=== PATIENT | female | born 1965 | race Hispanic/Latino ===

== ENCOUNTER 2022-07-10 23:16 | Inpatient (IN) | payer BC ==
--- OUTSIDE RECORDS SUMMARY | 2022-07-10 23:19 | XMS REPORT | Continuity of Care Document ---
:1965 Author Organization [facility] t Address [address] [place] [address] Care Team Providers Name Role Phone MILENA HENNESSY Attending Clinician Unavailable ENOCH SMITH Attending Clinician Unavailable ENOCH SMITH Admitting Clinician Unavailable Problems This patient has no known problems. Allergies, Adverse Reactions, Alerts This patient has no known allergies or adverse reactions. Medications This patient has no known medications. Procedures This patient has no known procedures. Encounters Start End Encounter Admission Attending Care Care Encounter Source Date/Time Date/Time Type Type Clinicians Facility Department ID 2021-04-28 2021-04-28 Outpatient MILENA HENNESSY [facility] [id number] [place] 00:00:00 00:00:[address] 2018-09-20 2018-09-20 Outpatient MERRICK FENG RAD [id number] 1859 [facility] [place] 12:57:00 23:59:00 E[facility] Results Test Description Test Time Test Comments Results Result Comments Source XR SPINE LUMBAR 2018-09-20 Lumbar spine, 5 COMPLETE *OW* 13:45:13 viewsLocation Code: [id number] HISTORY: Back painCOMPARISON: None.COMMENTS: AP, oblique, and lateral views of the lumbar spine demonstrate noacute fracture or malalignment. The soft tissues are unremarkable.IMPRESS ION: No acute radiographic abnormality.
[2022-07-11 00:46] LABS: Absolute Lymphocytes (CBC) 1.8 K/uL (0.7-4.9); Hematocrit 33.7 % (36.0-45.0); Lymphocytes % 33.2 % (15.3-44.8); MCV 84.9 fL (80-100); MPV 6.1 fL (7.6-11.3); RBC Red Blood Cell Count 3.97 M/uL (3.86-4.86)
[2022-07-11 01:06] LABS: ALT/SGPT 79 U/L (12-78); AST/SGOT 44 U/L (15-37); Albumin 3.7 g/dL (3.4-5.0); Alkaline Phosphatase 104 U/L (45-117); Bicarbonate 23 mmol/L (21-32); Bilirubin Direct 0.2 mg/dL (0-0.2); Glomerular Filtration Rate 111 ml/min (=/>90); Glucose Level 116 mg/dL (74-106); Lipase 158 U/L (73-393); Magnesium 1.6 mg/dL (1.8-2.4); Potassium 4.1 mmol/L (3.5-5.1); Protein, Total 7.1 g/dL (6.4-8.2)
[2022-07-11 01:07] LABS: BUN Blood Urea Nitrogen < 3 mg/dL (7-18); Sodium Level 116 mmol/L (136-145)
[2022-07-11 01:56] LABS: Urine Blood Negative (Negative); Urine Glucose Negative (Negative); Urine Protein Negative (Negative); Urine Specific Gravity 1.015 (1.005-1.030); Urine pH 7.5 (5.0-7.0)
[2022-07-11] MEDS ORDERED: NA CHLORIDE 0.9% 1,000 ML ONE (01:58)
[2022-07-11] MEDS ORDERED: MAGNESIUM SULFATE 1 gm IVPB 1 GM/100 ML BAG IV ONE (01:58)
[2022-07-11] MEDS ORDERED: NA CHLORIDE 0.9% 500 ML ONE (01:58)
[2022-07-11] MEDS ORDERED: ONDANSETRON 4 MG/2 ML VIAL ONE ×2 (02:00→08:38)
--- NOTE | 2022-07-11 02:01 | EDPHYS ---
Physician Documentation [facility] Name: Estela Petersen Age: 57 yrs Sex: Female : 1965 Arrival Date: 07/10/2022 Time: 23:18 Bed 24 Private MD: ED Physician Austin Hogan HPI: 07/11 00:07 This 57 yrs old Female presents to ER via Unassigned with complaints of snw Dizziness, Vomiting, Neck Pain, >24Hrs Old, Numbness Of Arm. 00:07 The patient presents with generalized weakness, lightheadedness. Onset: The snw symptoms/episode began/occurred suddenly, at 17:00, and became persistent. Context: occurred at home. Associated signs and symptoms: Pertinent positives: abdominal pain, long standing. Severity of symptoms: At their worst the symptoms were moderate. The patient has experienced similar episodes in the past. The patient has been recently seen at an urgent care, this week, for similar complaints, was given a prescription for antibiotics. pt had covid in April. Went to [place] in May. Has appt with Dr. Fernandez for an EGD tomorrow at 0800. Historical: - Allergies: 01:57 PENICILLINS; vc1 - PMHx: 01:57 Diabetes mellitus; Hypertensive disorder; High Cholesterol; GERD; vc1 - PSHx: 01:57 Hernia repair; vc1 - Immunization history:: Adult Immunizations. - Social history:: Smoking status: Patient denies any tobacco usage or history of. ROS: 00:05 Eyes: Negative for injury, pain, redness, and discharge, ENT: Negative for injury, snw pain, and discharge, Neck: Negative for injury, pain, and swelling, Cardiovascular: Negative for chest pain, palpitations, and edema, Respiratory: Negative for shortness of breath, cough, wheezing, and pleuritic chest pain. 00:05 Back: Negative for injury and pain, : Negative for injury, bleeding, discharge, and swelling, MS/Extremity: Negative for injury and deformity. 00:05 Constitutional: Positive for body aches, malaise, poor PO intake. 00:05 Abdomen/GI: Positive for abdominal pain, nausea, of the generalized. 00:05 Skin: Positive for of the left arm. 00:05 Neuro: Positive for dizziness, headache, pt being tx for UTI, changed abx today and post ingestion pt states she feels worse. . Exam: 00:04 Constitutional: This is a well developed, well nourished patient who is awake, alert, snw and in no acute distress. Head/Face: Normocephalic, atraumatic. Eyes: Pupils equal round and reactive to light, extra-ocular motions intact. Lids and lashes normal. Conjunctiva and sclera are non-icteric and not injected. Cornea within normal limits. Periorbital areas with no swelling, redness, or edema. ENT: Nares patent. No nasal discharge, no septal abnormalities noted. Tympanic membranes are normal and external auditory canals are clear. Oropharynx with no redness, swelling, or masses, exudates, or evidence of obstruction, uvula midline. Mucous membranes moist. Neck: Trachea midline, no thyromegaly or masses palpated, and no cervical lymphadenopathy. Supple, full range of motion without nuchal rigidity, or vertebral point tenderness. No Meningismus. Chest/axilla: Normal chest wall appearance and motion. Nontender with no deformity. No lesions are appreciated. Cardiovascular: Regular rate and rhythm with a normal S1 and S2. No gallops, murmurs, or rubs. Normal PMI, no JVD. No pulse deficits. Respiratory: Lungs have equal breath sounds bilaterally, clear to auscultation and percussion. No rales, rhonchi or wheezes noted. No increased work of breathing, no retractions or nasal flaring. Abdomen/GI: Soft, non-tender, with normal bowel sounds. No distension or tympany. No guarding or rebound. No evidence of tenderness throughout. Back: No spinal tenderness. No costovertebral tenderness. Full range of motion. Skin: Warm, dry with normal turgor. Normal color with no rashes, no lesions, and no evidence of cellulitis. MS/ Extremity: Pulses equal, no cyanosis. Neurovascular intact. Full, normal range of motion. Neuro: Awake and alert, GCS 15, oriented to person, place, time, and situation. Cranial nerves II-XII grossly intact. Motor strength 5/5 in all extremities. Sensory grossly intact. Cerebellar exam normal. Normal gait. Psych: Awake, alert, with orientation to person, place and time. Behavior, mood, and affect are within normal limits. Vital Signs: 07/10 23:40 BP 125 / 72; Pulse 90; Resp 20; Temp 97.6; Pulse Ox 100% ; Weight 68.04 kg; Height 5 vc1 ft. 0 in. (152.40 cm); Pain 8/10; 07/11 00:30 BP 126 / 72; Pulse 92; Resp 22; Pulse Ox 100% ; vc1 01:00 BP 120 / 65; Pulse 90; Resp 20; Pulse Ox 99% ; vc1 02:00 BP 136 / 67; Pulse 94; Resp 18; Pulse Ox 100% ; vc1 03:00 BP 115 / 64; Pulse 96; Resp 19; Pulse Ox 100% ; vc1 04:18 BP 117 / 63; Pulse 96; Resp 16; Pulse Ox 100% ; vc1 07/10 23:40 Body Mass Index 29.29 (68.04 kg, 152.40 cm) vc1 MDM: 00:02 Patient medically screened. snw 01:57 Data reviewed: vital signs, nurses notes. Data interpreted: Pulse oximetry: on is 100 snw %. Interpretation: normal. Counseling: I had a detailed discussion with the patient and/or guardian regarding: the historical points, exam findings, and any diagnostic results supporting the discharge/admit diagnosis, lab results, radiology results, the need for outpatient follow up, for definitive care. Response to treatment: There is no appreciated change of the patient's symptoms at this time. 01:59 Physician consultation: Sukhdeep ARROYO was called at 01:59, was contacted at 01:59, snw regarding admission, would like admission per Dr. Aki Juárez MD. 07/11 00:04 Order name: Basic Metabolic Panel; Complete Time: 01:09 snw 07/11 00:04 Order name: CBC with Diff; Complete Time: 01:06 snw 07/11 00:04 Order name: Hepatic Function; Complete Time: 01: snw 07/11 00:04 Order name: Lipase; Complete Time: 01: snw 07/11 00:04 Order name: Magnesium; Complete Time: 01: snw 07/11 00:04 Order name: Protime (+inr); Complete Time: 02:46 snw 07/11 00:04 Order name: Ptt, Activated; Complete Time: 02:46 snw 07/11 00:05 Order name: Glucose, Ancillary Testing; Complete Time: 00:10 EDMS 07/11 00:11 Order name: Glucose, Ancillary Testing EDMS 07/11 01:18 Order name: Urine Osmolality; Complete Time: 02:46 la1 07/11 01:18 Order name: Urine Creatinine; Complete Time: 02:19 la1 07/11 01:18 Order name: Urine Sodium Random; Complete Time: 02:19 la1 07/11 01:18 Order name: Osmolality, Serum; Complete Time: 02:46 la1 07/11 01:18 Order name: Uric Acid; Complete Time: 02:14 la1 07/11 00:04 Order name: CT Head Brain wo Cont snw 07/11 01:18 Order name: Cortisol la1 07/11 01:56 Order name: Urine Dipstick-Ancillary; Complete Time: 01:57 EDMS 07/11 01:57 Order name: Urine Culture snw 07/11 01:57 Order name: Urine Microscopic Only; Complete Time: 02:19 snw 07/11 02:30 Order name: SARS RAPID; Complete Time: 05:04 mw2 07/11 06:19 Order name: Basic Metabolic Panel EDMS 07/11 06:19 Order name: Phosphorus EDMS 07/11 06:19 Order name: T4 Free EDMS 07/11 06:19 Order name: Magnesium EDMS 07/11 06:19 Order name: Thyroid Stimulating Hormone EDMS 07/11 07:36 Order name: Glucose, Ancillary Testing EDMS 07/11 09:45 Order name: Basic Metabolic Panel EDMS 07/11 11:34 Order name: Glucose, Ancillary Testing EDMS 07/11 16:36 Order name: Basic Metabolic Panel EDMS 07/11 16:48 Order name: Glucose, Ancillary Testing EDMS 07/11 00:04 Order name: EKG; Complete Time: 00:08 snw 07/11 00:04 Order name: Accucheck; Complete Time: 00:44 snw 07/11 00:04 Order name: Cardiac monitoring; Complete Time: 00:36 snw 07/11 00:04 Order name: EKG - Nurse/Tech; Complete Time: 01:28 snw 07/11 00:04 Order name: IV Saline Lock; Complete Time: 00:44 snw 07/11 00:04 Order name: Labs collected and sent; Complete Time: 00:44 snw 07/11 00:04 Order name: NPO; Complete Time: 00:44 snw 07/11 00:04 Order name: O2 Per Protocol; Complete Time: 00:44 snw 07/11 00:04 Order name: O2 Sat Monitoring; Complete Time: 00:44 snw 07/11 00:04 Order name: Stroke Swallow Screen; Complete Time: 01:29 snw 08 00:04 Order name: Chest Single View XRAY snw 07/11 01:57 Order name: Urine Dipstick-Ancillary (obtain specimen); Complete Time: 02:08 snw EC:25 Rate is 91 beats/min. Rhythm is regular. QRS [place] is Normal. HI interval is normal. QRS snw interval is normal. QT interval is normal. No Q waves. T waves are Normal. No ST changes noted. Clinical impression: Normal ECG. Administered Medications: 01:56 Drug: Zofran (Ondansetron) 4 mg Route: IVP; Site: right forearm; vc1 04:21 Follow up: Response: No adverse reaction; Marked relief of symptoms; Nausea is decreasedvc1 02:08 Drug: NS 0.9% 500 ml Route: IV; Rate: bolus; Site: right forearm; vc1 02:40 Follow up: Response: No adverse reaction; IV Status: Completed infusion; IV Intake: vc1 500ml 02:08 Drug: Magnesium Sulfate 1 grams Route: IVPB; Infused Over: 1 hrs; Site: right forearm; vc1 03:08 Follow up: Response: No adverse reaction; IV Status: Completed infusion; IV Intake: vc1 100ml 03:17 Not Given (Other Intervention Used): NS 0.9% 1000 ml IV at 125 ml/hr continuous la1 04:20 Drug: NS 0.9% 1000 ml Route: IV; Rate: 50 ml/hr; Site: right forearm; vc1 04:21 Follow up: Response: No adverse reaction; IV Status: Infusion continued upon admission vc1 Disposition: 19:29 Co-signature as Attending Physician, Austin Hogan MD. [email or web address] Disposition Summary: 07/11/22 02:01 Hospitalization Ordered Hospitalization Status: Inpatient Admission snw Provider: Aki Juárez Condition: Stable snw Problem: an ongoing problem snw Symptoms: are unchanged snw Bed/Room Type: Standard snw Location: Intensive Care Unit(07/11/22 16:06) bd Room Assignment: 5-(07/11/22 16:06) bd Diagnosis - Hypo-osmolality and hyponatremia snw - UTI/ Urinary tract infection, site not specified snw Forms: - Medication Reconciliation Form snw - SBAR form snw Signatures: Dispatcher [employer] EDMS ThorpeRonda Letitia Monzon RN RN Rama Perez FNP-C FNP-Csnw Sukhdeep Mead FNP-C FNP-Cla1 Austin Hogan MD MD [email or web address] Gayathri Pettit RN RN vc1 Corrections: (The following items were deleted from the chart) 02:00 01:57 Special discussion: Based on the history and exam findings, there is no snw indication for further emergent testing or inpatient evaluation. snw 02:01 01:59 Physician consultation: Sukhdeep GARCIA-Lindsey was called at 01:59, was contacted at snw 01:59, regarding admission, would like admission per Dr. Mark Sutton [facility] 02:27 02:01 Telemetry/MedSurg (Inpatient) [facility] mw 02:27 02:01 [facility] mw 16:06 02:27 [facility] ER HOLD bd 16:06 02:27 ERHOLD- bd
--- NOTE | 2022-07-11 02:01 | ER ---
Nurse's Notes [facility] Name: Estela Petersen Age: 57 yrs Sex: Female : 1965 Arrival Date: 07/10/2022 Time: 23:18 Bed 24 Private MD: Diagnosis: Hypo-osmolality and hyponatremia;UTI/ Urinary tract infection, site not specified Presentation: 07/10 23:25 Chief complaint: Patient states: "I went to and I had a UTI, they gave me a vc1 medicine but called me last night and said it wasn't the right one so I started a new stronger one today. Since I took the stronger antibiotic I feel worse and more nauseous. Im having pain in the back all the way up my neck and a headache. My left arm is numb, almost feels like it is asleep.". 23:25 Acuity: SILVIA 2 vc1 23:25 Coronavirus screen: Vaccine status: Patient reports receiving the 2nd dose of the covid vc1 vaccine. Booster; Moderna At this time, the client does not indicate any symptoms associated with coronavirus-19. Ebola Screen: No symptoms or risks identified at this time. Initial Sepsis Screen: Does the patient meet any 2 criteria? Yes Does the patient have a suspected source of infection? No. Patient's initial sepsis screen is negative. Risk Assessment: Do you want to hurt yourself or someone else? Patient reports no desire to harm self or others. Onset of symptoms is unknown. 23:25 Method Of Arrival: Ambulatory vc1 Historical: - Allergies: 07/11 01:57 PENICILLINS; vc1 - PMHx: 01:57 Diabetes mellitus; Hypertensive disorder; High Cholesterol; GERD; vc1 - PSHx: 01:57 Hernia repair; vc1 - Immunization history:: Adult Immunizations. - Social history:: Smoking status: Patient denies any tobacco usage or history of. Screenin:00 Abuse screen: Denies threats or abuse. Nutritional screening: No deficits noted. vc1 Tuberculosis screening: No symptoms or risk factors identified. Fall Risk None identified. 00:01 The patient has not been NPO before screening. The patient is alert, able to follow bb commands. The patient does not exhibit slurred or garbled speech The patient is not exhibiting difficulty speaking. The patient does not exhibit difficulty understanding words. The patient is able to swallow own secretions with no drooling or need for suction. Patient tolerated one teaspoon of water. No drooling, immediate coughing, gurgling, or clearing of the throat was noted. The patient tolerated 90mL of water. No drooling, immediate coughing, gurgling, or clearing of the throat was noted. The patient passed the bedside swallow screening. Oral medications may be given as ordered. Contact Physician for further diet orders. Assessment: 00:00 General: Appears in no apparent distress. uncomfortable, Behavior is calm, cooperative. vc1 Pain: Complains of pain in occipital area, base of the skull, right posterior aspect of neck and left posterior aspect of neck and left arm Pain does not radiate. Pain currently is 8 out of 10 on a pain scale. Neuro: Level of Consciousness is awake, alert, obeys commands, Oriented to person, place, time, situation, Appropriate for age. Neuro: Reports difficulty swallowing dizziness, headache numbness in left arm. Cardiovascular: Reports nausea, Capillary refill Patient's skin is warm and dry. Respiratory: Airway is patent Respiratory effort is even, unlabored, Respiratory pattern is regular, symmetrical. GI: Abdomen is non-distended, Reports nausea. : Reports pain with urination, urinary frequency. EENT: No deficits noted. Derm: No deficits noted. 02:00 Reassessment: No changes from previously documented assessment. Patient and/or family vc1 updated on plan of care and expected duration. Pain level reassessed. Patient is alert, oriented x 3, equal unlabored respirations, skin warm/dry/pink. 03:00 Reassessment: No changes from previously documented assessment. Patient and/or family vc1 updated on plan of care and expected duration. Pain level reassessed. Patient is alert, oriented x 3, equal unlabored respirations, skin warm/dry/pink. 04:00 Reassessment: No changes from previously documented assessment. Patient and/or family vc1 updated on plan of care and expected duration. Pain level reassessed. Patient is alert, oriented x 3, equal unlabored respirations, skin warm/dry/pink. Patient states feeling better. Patient states symptoms have improved. Vital Signs: 07/10 23:40 BP 125 / 72; Pulse 90; Resp 20; Temp 97.6; Pulse Ox 100% ; Weight 68.04 kg; Height 5 vc1 ft. 0 in. (152.40 cm); Pain 8/10; 07/11 00:30 BP 126 / 72; Pulse 92; Resp 22; Pulse Ox 100% ; vc1 01:00 BP 120 / 65; Pulse 90; Resp 20; Pulse Ox 99% ; vc1 02:00 BP 136 / 67; Pulse 94; Resp 18; Pulse Ox 100% ; vc1 03:00 BP 115 / 64; Pulse 96; Resp 19; Pulse Ox 100% ; vc1 04:18 BP 117 / 63; Pulse 96; Resp 16; Pulse Ox 100% ; vc1 07/10 23:40 Body Mass Index 29.29 (68.04 kg, 152.40 cm) vc1 ED Course: 07/10 23:18 Patient arrived in ED. bp1 23:25 Arm band placed on right wrist. vc1 23:56 Rama Butts FNP-C is PHCP. snw 23:56 Austin Hogan MD is Attending Physician. snw 07/11 00:00 Patient has correct armband on for positive identification. Placed in gown. Bed in low vc1 position. Call light in reach. Side rails up X2. Client placed on continuous cardiac and pulse oximetry monitoring. NIBP monitoring applied. 00:10 Inserted saline lock: 22 gauge in right forearm, using aseptic technique. vc1 00:17 CT Head Brain wo Cont In Process Unspecified. EDMS 00:28 Chest Single View XRAY In Process Unspecified. EDMS 00:44 Gayathri Pettit RN is Primary Nurse. vc1 01:28 Glucose, Ancillary Testing Sent. vc1 02:00 Mark Sutton is Hospitalizing Provider. snw 02:00 Hospitalizing Provider role handed off by Mark Sutton snw 02:00 Aki Juárez MD is Hospitalizing Provider. snw 04:14 Triage completed. vc1 04:14 No provider procedures requiring assistance completed. Patient admitted, IV remains in vc1 place. 07:29 Primary Nurse role handed off by Gayathri Pettit, DEWAYNE jl7 07:42 Stone Mitchell RN is Primary Nurse. jl7 Administered Medications: 01:56 Drug: Zofran (Ondansetron) 4 mg Route: IVP; Site: right forearm; vc1 04:21 Follow up: Response: No adverse reaction; Marked relief of symptoms; Nausea is decreasedvc1 02:08 Drug: NS 0.9% 500 ml Route: IV; Rate: bolus; Site: right forearm; vc1 02:40 Follow up: Response: No adverse reaction; IV Status: Completed infusion; IV Intake: vc1 500ml 02:08 Drug: Magnesium Sulfate 1 grams Route: IVPB; Infused Over: 1 hrs; Site: right forearm; vc1 03:08 Follow up: Response: No adverse reaction; IV Status: Completed infusion; IV Intake: vc1 100ml 03:17 Not Given (Other Intervention Used): NS 0.9% 1000 ml IV at 125 ml/hr continuous la1 04:20 Drug: NS 0.9% 1000 ml Route: IV; Rate: 50 ml/hr; Site: right forearm; vc1 04:21 Follow up: Response: No adverse reaction; IV Status: Infusion continued upon admission vc1 Medication: 04:14 VIS not applicable for this client. vc1 Intake: 02:40 IV: 500ml; Total: 500ml. vc1 03:08 IV: 100ml; Total: 600ml. vc1 Outcome: 02:01 Decision to Hospitalize by Provider. snw 04:15 Admitted to ER Hold. Please see [facility] for further documentation. vc1 04:15 Condition: stable 04:15 Instructed on the need for admit, medication usage. 17:35 Patient left the ED. jl7 Signatures: Dispatcher [employer] EDMS Rama Butts FNP-C BUTADIENE CONVERTOR OPERATOR-Rhonda Presley RN RN bb Leal, Jahala, RN RN jl7 Rupinder Tom Vanessa, RN RN vc1 Sukhdeep Mead BUTADIENE CONVERTOR OPERATOR-Cla1
[2022-07-11 02:17] LABS: Urine Bacteria <20 /HPF (<20); Urine RBC <5 /HPF (None Seen)
--- NOTE | 2022-07-11 03:35 | P.HP ---
Certification for Inpatient Patient admitted to: Inpatient With expected LOS: >2 Midnights Patient will require the following post-hospital care: None Practitioner: I am a practitioner with admitting privileges, knowledge of patient current condition, hospital course, and medical plan of care. Services: Services provided to patient in accordance with Admission requirements found in Title 42 Section 412.3 of the Code of Federal Regulations <Sukhdeep Mead - Last Filed: 07/11/22 03:30> Patient History Date of Service: 07/11/22 Primary Care Provider: OOT Reason for admission: Hyponatremia History of Present Illness: 57-year-old female with history of diabetes type [id number], hype rtension, hyperlipidemia and GERD presented to the emergency department for nausea, headache, paresthesias. She reports that she been to an outside hospital/office a few times in the past month for UTI and had been told that her sodium was relatively low. She was evaluated here in the emergency department her labs were significant for sodium level of 116 chloride of 81 creatinine 0.47 serum osmolality 238 uric acid 1.8 magnesium 1.6 urine osmolality 347 urine random sodium 69 urine creatinine 50. Results from [facility] reviewed patient sodium level was as low as 117 earlier this month appears to be acute on chronic hyponatremia. Patient is given 500 cc NS bolus in the emergency department will be admitted for further evaluation and management. 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 [place] - Family History Mother -: Cancer (Liver) - Social History Smoking Status: Never smoker Alcohol use: No CD- Drugs: No Caffeine use: Yes Place of Residence: Home <Sukhdeep Mead - Last Filed: 07/11/22 03:30> Date of Service: 07/11/22 <Aki Juárez - Last Filed: 07/11/22 18:49> Review of Systems 10-point ROS is otherwise unremarkable General: Weakness Gastrointestinal: Nausea Neurological: Confusion, Other (Paresthesias ) <Sukhdeep Mead - Last Filed: 07/11/22 03:30> Physical Examination - Physical Exam General: Alert, In no apparent distress, Oriented x3 HEENT: Atraumatic, PERRLA, Mucous membr. moist/pink, Sclerae nonicteric Neck: Supple, 2+ carotid pulse no bruit, No LAD Respiratory: Clear to auscultation bilaterally, Normal air movement Cardiovascular: No edema, Regular rate/rhythm, Normal S1 S2 Capillary refill: <2 Seconds Gastrointestinal: Normal bowel sounds, No tenderness, No rebound, No guarding Musculoskeletal: No tenderness Integumentary: No rashes Neurological: Normal speech, Normal strength at 5/5 x4 extr, Normal tone, Normal affect - Studies Laboratory Data (last 24 hrs) 07/11/22 01:39: Uric Acid 1.8 L 07/11/22 01:39: PT 11.0, INR 1.00, APTT 34.6 07/11/22 00:19: WBC 5.50, Hgb 12.5, Hct 33.7 L, Plt Count 320 07/11/22 00:19: Sodium 116 L*, Potassium 4.1, BUN < 3 L, Creatinine 0.47 L, Glucose 116 H, Magnesium 1.6 L, Total Bilirubin 1.0, AST 44 H, ALT 79 H, Alkaline Phosphatase 104, Lipase 158 <Sukhdeep Mead - Last Filed: 07/11/22 03:30> - Studies Laboratory Data (last 24 hrs) 07/11/22 01:39: Uric Acid 1.8 L 07/11/22 01:39: PT 11.0, INR 1.00, APTT 34.6 07/11/22 00:19: WBC 5.50, Hgb 12.5, Hct 33.7 L, Plt Count 320 07/11/22 00:19: Sodium 116 L*, Potassium 4.1, BUN < 3 L, Creatinine 0.47 L, Glucose 116 H, Magnesium 1.6 L, Total Bilirubin 1.0, AST 44 H, ALT 79 H, Alkaline Phosphatase 104, Lipase 158 <Aki Juárez - Last Filed: 07/11/22 18:49> Assessment and Plan - Plan Assessment: Severe acute on chronic hyponatremia Diabetes mellitus type [id number] Hypertension Hyperlipidemia GERD Plan: Severe acute on chronic hyponatremia: Appears to be acute on chronic patient had labs at [facility] earlier this month with sodium levels between 117 and 119, known etiology, patient is not on any diuretics does not have a previous known history of hyponatremia before this. She does admit to poor oral intake ever since she had COVID at the end of April. Labs are concerning for SIADH nephrology recommended NS at 50 cc/h with every 4 hour BMPs for the time being. Patiently mildly symptomatic at this time. appreciate further input from nephrology. Diabetes mellitus type [id number]: ACHAriadna montalvo, ZOILA Hypertension: Continue home meds. Hyperlipidemia: Continue home meds. GERD: Continue home meds. DVT PPX: Lovenox Code status:full Discharge Plan: Home Plan to discharge in: 72 Hours - Advance Directives Does patient have a Living Will: Yes Does patient have a Durable POA for Healthcare: No - Code Status/Comfort Care Code Status Assessed: Yes (Full code) Critical Care: No Time Spent Managing Pts Care (In Minutes): 70 <Sukhdeep Mead - Last Filed: 07/11/22 03:30> Physician Review: Patient Assessed, Agree with Above Assessment and Plan <Aki Juárez - Last Filed: 07/11/22 18:49>
[2022-07-11 03:44] LABS: SARS-CoV-2 Antigen Rapid Res Negative (Negative)
[2022-07-11] MEDS ORDERED: NA CHLORIDE 0.9% 1,000 ML IV SCH (04:02)
[2022-07-11 06:16] LABS: Magnesium 2.3 mg/dL (1.8-2.4); Phosphorus 3.4 mg/dL (2.5-4.9); Potassium 3.7 mmol/L (3.5-5.1); Thyroid Stimulating Hormone 0.561 uIU/mL (0.360-3.740)
[2022-07-11] MEDS ORDERED: POTASSIUM 25 MEQ EFFERV TAB PO ONE (06:27)
[2022-07-11] MEDS ORDERED: KCL 20 MEQ/100 mL IVPB 20 MEQ/100 ML BAG IV SCH (07:00)
[2022-07-11] MEDS: INSULIN -REGULAR HUMAN 50 UNIT/0.5 ML ML SQ SCH ×4 (07:30→21:00)
[2022-07-11] MEDS ORDERED: PNEUMOCOCCAL VACCINE 0.5 ML IMVAC ONE ×2 (08:00→08:38)
--- NOTE | 2022-07-11 08:12 | EKG ---
Test Date: 2022-07-11 Test Time: 01:08:09 Cafe Manager: TERRY MEASUREMENT RESULTS: Intervals: Rate: 91 WV: 148 QRSD: 78 QT: 344 QTc: 423 [place]: P: 73 WV: 148 QRS: 87 T: 56 INTERPRETIVE STATEMENTS: Normal sinus rhythm Normal ECG No previous ECG available for comparison Electronically Signed On 07-11-22 08:10:57 CDT by David Solorzano
[2022-07-11] MEDS ORDERED: ENOXAPARIN 40 MG/0.4 ML SQ ONE (08:38)
[2022-07-11] MEDS: ONDANSETRON 4 MG/2 ML VIAL IV PRN (08:45)
[2022-07-11] MEDS: ENOXAPARIN 40 MG/0.4 ML SQ SCH (09:00)
[2022-07-11 09:43] LABS: Potassium 4.2 mmol/L (3.5-5.1)
[2022-07-11] MEDS: ACETAMINOPHEN 500 MG TAB PO PRN (09:52)
[2022-07-11] MEDS ORDERED: ACETAMINOPHEN 500 MG TAB ONE (09:58)
--- NOTE | 2022-07-11 10:29 | RAD REPORT ---
EXAM DESCRIPTION: CT - Head Brain Wo Cont - 07/11/2022 6:42 am ADDENDUM #1 ADDENDUM: THIS REPORT CONTAINS FINDINGS THAT MAY BE CRITICAL TO PATIENT'S CARE: The findings were verbally discussed via telephone conference with MARÍA WHITT NP by Dr. Strickland on 07/11/2022 12:28 AM CDT. The results were acknowledged and understood. Electronically signed by: Jori Strickland DO 07/11/2022 12:28 AM CDT End of Addendum EXAM DESCRIPTION: Head Brain Wo Cont CLINICAL HISTORY: 57 years Female left arm numbness COMPARISON: CT head without contrast dated 06/01/2022 TECHNIQUE: Contiguous axial images of the brain were obtained without the administration of intraven ous contrast.This exam was performed according to our departmental dose-optimization program which in cludes use of Automated Exposure Control, adjustment of the mA and/or kV according to patient size an d/or use of iterative reconstruction technique. DLP: 822 mGy*cm FINDINGS: Brain: No acute intracranial hemorrhage. No extra-axial collection. No mass effect or tommie iation. Patchy periventricular and subcortical white matter hypodensity is noted. Ventricles: Within normal limits in size. Globes and orbits: No acute abnormality. Bones: No acute osseous finding Paranasal sinuses: Paranasal sinuses are clear. Mastoid air cells: Well pneumatized. Soft tissues: Within normal limits IMPRESSION: 1. No acute hemorrhage, hydrocephalus or herniation. 2. Chronic small vessel ischemic changes. Consider MRI brain for further evaluation. Electronically signed by: Jori Strickland DO 07/11/2022 12:23 AM CDT Due to temporary technical issues with the PACS/Fluency reporting system, reports are being signed by the in house radiologists without review as a courtesy to insure prompt reporting. The interpreting radiologist is fully responsible for the content of the report.
[2022-07-11] MEDS: D5W 1,000 ML IV SCH (11:00)
[2022-07-11] MEDS ORDERED: D5W 1,000 ML IV ONE (11:20)
--- NOTE | 2022-07-11 11:27 | P.CNS ---
Date of Consult: 07/11/22 Reason for Consult: hyponatremia Primary Care Provider: MIRIAM Chief Complaint: Hyponatremia History of Present Illness: HPI 57-year-old female with history of diabetes type [id number], hypertension, hyperlipidemia and GERD and Hx of gastroparesis pt presented to ER with weakness , nausea and headache and neck pain pt was scheduled for EGD today , she has Hx of gastroparesis , had EGD in the past , pt stated she had poor oral apatite , but denied vomiting or diarrhea , she also denied NSAID, HCTZ or SSRI intake in ER sodium level of 116 chloride of 81 creatinine 0.47 serum osmolality 238 uric acid 1.8 magnesium 1.6 urine osmolality 347 urine random sodium 69 urine creatinine 50. as per documentation Results from [facility] reviewed patient sodium level was 117 earlier this month appears pt received IV in ER ROS General : Postive for weakness denies fever, chills, , insomnia HEENT: Denies dry, vision changes and headache Resp: denies SOB, cough or wheezes Cardiovascular: denied chest pain, palpitation , no SOB GI: psotive for nausea denies abdominal pain, diarrhea or constipation : has dysuria, denied urgency, foamy urine or blood tinged urine Musculoskeletal: denies muscle aches, joint pain Endo: denies polyuria and and polydipsia Extre: denies pain numbness and swelling Physical exam General: AAOx3, NAD, obese HEENT PERRLA, moist mucose membrane neck: supple, no elevated JVD CHEST; CTAB, no wheezes or rales HEART : RRR. Normal S1,2 no murmur or rub Abd: soft, Nt Ext: no edema Skin : No rash A/P #hypoosmolar Hyponatremia possibly due to poor roal intake, supported by tachycardia, gastroparesis and low uric acid VS Adrenal insuffciency supported by urine lytes and borderline BP sodium overcorrected , will start on D5w target sodium level is 128 by tomorrow evening will start on D5w liberalize fluid intake labs Q6hrs TSH 0.5, uric acid 1.8, avoid HCTZ and SSRI Total time spent 45 minutes including documentation, rev iewing labs , placing orders and discussing with medical team #DM SSI #HTH BP borderline with tachycardia will start on D5w # Hx of gastroparesis advance diet as tolerated reglan prn Total time spent 65 minutes including documentation, reviewing labs , placing orders and discussing with medical team Allergies Penicillins Allergy (Verified 07/11/22 04:02) Hives/Rash Home Medications: Atorvastatin Calcium [Lipitor] 40 mg PO BEDTIME 07/11/22 Famotidine [Pepcid] 20 mg PO BID 07/11/22 Folic Acid/Vit B Complex and C [Folbee Plus Tablet] 5 mg PO [id number] 07/11/22 Glimepiride [Amaryl] 4 mg PO BID 07/11/22 Metformin ER [Glucophage ER] 1,000 mg PO BID 07/11/22 Pantoprazole [Protonix Tab] 40 mg PO DAILY 07/11/22 Semaglutide [Rybelsus] 14 mg PO DAILY 07/11/22 Sucralfate [Carafate -Tab] 1 gm PO ACHS 07/11/22 clindamycin HCL [Clindamycin HCl] 300 mg PO TID 07/11/22 lisinopriL [Lisinopril] 20 mg PO DAILY 07/11/22 - Past Medical/Surgical History Diabetic: Yes -: HTN -: DMII -: HLD -: Hernia repair Psychosocial/ Personal History: Lives at home with her brother, 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 [place] - Family History Mother Medical History: Cancer - Social History Alcohol use: No CD- Drugs: No Caffeine use: Yes Place of Residence: Home Physical Examination Temp Pulse Resp BP Pulse Ox 97.6 F 105 H 15 106/66 07/11/22 08:00 07/11/22 08:00 07/11/22 08:00 07/11/22 08:00 Laboratory Data (last 24 hrs) 07/11/22 01:39: Uric Acid 1.8 L 07/11/22 01:39: PT 11.0, INR 1.00, APTT 34.6 07/11/22 00:19: WBC 5.50, Hgb 12.5, Hct 33.7 L, Plt Count 320 07/11/22 00:19: Sodium 116 L*, Potassium 4.1, BUN < 3 L, Creatinine 0.47 L, Glucose 116 H, Magnesium 1.6 L, Total Bilirubin 1.0, AST 44 H, ALT 79 H, Alkaline Phosphatase 104, Lipase 158
--- NOTE | 2022-07-11 12:23 | RAD REPORT ---
EXAM DESCRIPTION: RAD - Chest Single View - 07/11/2022 12:26 am CLINICAL HISTORY: 57 years Female, ABDOMINAL DISTENTION TECHNIQUE: 1 view (Single frontal view of the chest) COMPARISON: None. FINDINGS: LINES AND TUBES: None. CARDIOVASCULAR STRUCTURES: Normal heart size. No pulmonary venous congestion. LUNGS: No confluent areas of acute consolidation. Mild linear scarring versus artifactual right lower lobe. PLEURA: No layering pleural effusions. No pneumothorax. BONES: No acute osseous abnormality of the thorax. IMPRESSION: 1. No acute cardiopulmonary disease. Electronically signed by: Michael Ulloa MD 07/11/2022 12:44 AM CDT Due to temporary technical issues with the PACS/Fluency reporting system, reports are being signed by the in house radiologists without review as a courtesy to insure prompt reporting. The interpreting radiologist is fully responsible for the content of the report.
[2022-07-12] MEDS ORDERED: D5W 500 ML IV SCH (00:30)
[2022-07-12] MEDS: D5W 1,000 ML IV SCH ×4 (00:56→22:05)
[2022-07-12 05:17] LABS: Absolute Lymphocytes (CBC) 1.5 K/uL (0.7-4.9); Hematocrit 36.2 % (36.0-45.0); Lymphocytes % 20.1 % (15.3-44.8); MCV 88.9 fL (80-100); MPV 6.2 fL (7.6-11.3); RBC Red Blood Cell Count 4.07 M/uL (3.86-4.86)
[2022-07-12 05:33] LABS: Bicarbonate 25 mmol/L (21-32); Glomerular Filtration Rate 115 ml/min (=/>90); Glucose Level 115 mg/dL (74-106); Magnesium 2.2 mg/dL (1.8-2.4); Phosphorus 3.3 mg/dL (2.5-4.9); Potassium 3.9 mmol/L (3.5-5.1); Sodium Level 130 mmol/L (136-145)
[2022-07-12 05:44] LABS: BUN Blood Urea Nitrogen < 3 mg/dL (7-18)
[2022-07-12] MEDS: INSULIN -REGULAR HUMAN 50 UNIT/0.5 ML ML SQ SCH ×4 (06:51→21:00)
[2022-07-12] MEDS ORDERED: D5W 1,000 ML IV SCH ×2 (07:00→11:00)
[2022-07-12] MEDS ORDERED: DESMOPRESSIN 4 MCG/ML AMP SQ ONE (07:00)
[2022-07-12] MEDS ORDERED: COSYNTROPIN 0.25 MG VIAL IV ONE (08:00)
[2022-07-12] MEDS ORDERED: SODIUM CHLORIDE 0.9% 10ML INJ IV ONE (08:00)
[2022-07-12] MEDS: ENOXAPARIN 40 MG/0.4 ML SQ SCH (08:15)
[2022-07-12 10:16] LABS: Bicarbonate 25 mmol/L (21-32); Glomerular Filtration Rate 111 ml/min (=/>90); Glucose Level 154 mg/dL (74-106); Potassium 3.5 mmol/L (3.5-5.1); Sodium Level 128 mmol/L (136-145)
[2022-07-12 10:24] LABS: BUN Blood Urea Nitrogen < 3 mg/dL (7-18)
[2022-07-12] MEDS: ONDANSETRON 4 MG/2 ML VIAL IV PRN ×2 (11:42→17:20)
[2022-07-12 12:07] LABS: Bicarbonate 26 mmol/L (21-32); Glomerular Filtration Rate 107 ml/min (=/>90); Glucose Level 292 mg/dL (74-106); Potassium 3.6 mmol/L (3.5-5.1); Sodium Level 121 mmol/L (136-145)
[2022-07-12 12:08] LABS: BUN Blood Urea Nitrogen < 3 mg/dL (7-18)
[2022-07-12] MEDS ORDERED: POTASSIUM CL 40 MEQ in NA CHLORIDE 0.9% 500 ML IV ONE (13:00)
--- NOTE | 2022-07-12 13:31 | PN ---
Date of Progress Note: 07/12/2022 Subjective: The patient was admitted with hyponatremia. The patient receives fluid. The patient started having significant polyuria over the night. In the last 12 hours, the patient had 3500 urine output. The patient had significant over-correction in her sodium. In the last 24 hours, she afsaneh from 116 to 130. For that reason, the patient was trying to slow the over-correction. The patient received DDAVP and received a total of 2.5 L of D5. The patient was maintained on D5 at 50. Physical Examination: General: When I saw the patient; the patient sitting in bed, comfortable without any distress. No tremor. Completely awake, eating her breakfast. Vital Signs: Blood pressure 111/90, pulse of 117, afebrile. Chest: Clear to auscultation. Heart: S1, S2. Regular. Abdomen: Soft, nontender. Extremities: No edema. Neurologic: Alert, oriented x3. No tremor. No focality. Laboratory Data: Today at 9 o'clock; sodium 128, potassium 3.5, bicarb 25, BUN less than 3, creatinine 0.4, calcium 8.9. Urinalysis; urine osmolality 3.47, sodium of 69. Her sodium in the last night, at midnight it was 116, so in 33 hours, we afsaneh by 12 which is appropriate. I am going to go ahead and give 1 L of D5. Assessment And Plan: 1. Hyponatremia secondary to SIADH supported with the low uric acid, low BUN and elevation in the urine sodium, over-corrected with ocer correction status post DDAVP. The patient was corrected, currently appropriately with 12 point over around 33 hours. I am going to repeat the sodium in 6 hours. The patient received another L of D5. We will increase the D5 to 100 and we will maintain it on 100. We will follow up. 2. Hypokalemia. We will supplement the patient. 3. Low cortisol. The patient has a cortisol stimulation test. We will follow up. Time spent examining the patient [id number], reviewing the data lab and radiology, placing orders, discussing with the patient, explaining risks, benefits, alternatives, discussing with the staff member including nursing discussing with the hospitalist more than 35 minutes. LAZARO Voice ID: [id number] Report ID: [id number] MTDD
--- NOTE | 2022-07-12 13:52 | P.PN ---
Subjective Date of Service: 07/12/22 Primary Care Provider: MIRIAM Chief Complaint: Hyponatremia Subjective: No new changes No acute events overnight. She reports no specific symptoms. She denies any pain, shortness of breath, headaches, confusion, nausea, or vomiting. Review of Systems 10-point ROS is otherwise unremarkable Physical Examination - Vital Signs Temperature: 97.0 F Blood Pressure: 111/90 Pulse: 117 Respirations: 22 Pulse Ox (%): 100 - Physical Exam General: Alert, In no apparent distress, Oriented x3 HEENT: Atraumatic, PERRLA, Mucous membr. moist/pink, EOMI, Sclerae nonicteric Neck: Supple, JVD not distended Respiratory: Clear to auscultation bilaterally, Normal air movement Cardiovascular: No edema, Regular rate/rhythm, Normal S1 S2, No gallops, No rubs, No murmurs Gastrointestinal: Normal bowel sounds, Hypoactive, Soft and benign, No tenderness, No rebound, No guarding Musculoskeletal: No clubbing Integumentary: No rashes Neurological: Normal speech, Cranial nerves 3-12 intact, Normal affect Assessment And Plan - Plan # Hypovolemic Hyponatremia - Consulted Nephrology and spoke with Dr. Reyes - recommendations appreciated - Evaluation thus far: - TSH = 0.561 - Cosyntropin stim test = not suggestive of adrenal insufficiency - serum Osm 238, urine Osm 347, urine Na 69 - Appreciate Nephrology recommendations regarding IV fluids +/- desmopressin # Hyperglycemia in Type II Diabetes Mellitus - Ordered Hgb A1c - Correction scale insulin # Hypertension # Hyperlipidemia # Gastroesophageal Reflux Disease - Continue home meds once verified Aki Juárez M.D. Discharge Plan: Home Plan to discharge in: 48 Hours
[2022-07-12 18:13] LABS: Bicarbonate 23 mmol/L (21-32); Glomerular Filtration Rate 108 ml/min (=/>90); Glucose Level 223 mg/dL (74-106); Potassium 4.4 mmol/L (3.5-5.1); Sodium Level 121 mmol/L (136-145)
[2022-07-12 18:14] LABS: BUN Blood Urea Nitrogen < 3 mg/dL (7-18)
[2022-07-12] MEDS: ACETAMINOPHEN 500 MG TAB PO PRN (19:55)
[2022-07-12] MEDS ORDERED: NA CHLORIDE 0.9% 250 ML IV ONE (23:38)
[2022-07-13 05:19] LABS: Absolute Lymphocytes (CBC) 1.8 K/uL (0.7-4.9); Hematocrit 32.3 % (36.0-45.0); Lymphocytes % 31.6 % (15.3-44.8); MCV 87.7 fL (80-100); MPV 6.1 fL (7.6-11.3); RBC Red Blood Cell Count 3.68 M/uL (3.86-4.86)
[2022-07-13 05:26] LABS: Bicarbonate 24 mmol/L (21-32); Glomerular Filtration Rate 116 ml/min (=/>90); Glucose Level 149 mg/dL (74-106); Magnesium 1.9 mg/dL (1.8-2.4); Phosphorus 3.2 mg/dL (2.5-4.9); Potassium 3.9 mmol/L (3.5-5.1); Sodium Level 124 mmol/L (136-145)
[2022-07-13 05:32] LABS: BUN Blood Urea Nitrogen < 3 mg/dL (7-18)
[2022-07-13] MEDS: INSULIN -REGULAR HUMAN 50 UNIT/0.5 ML ML SQ SCH ×4 (07:30→21:00)
[2022-07-13] MEDS ORDERED: POTASSIUM 25 MEQ EFFERV TAB PO ONE ×2 (07:30→11:39)
[2022-07-13] MEDS: D5W 1,000 ML IV SCH (08:05)
[2022-07-13] MEDS: ENOXAPARIN 40 MG/0.4 ML SQ SCH (08:42)
[2022-07-13] MEDS: FUROSEMIDE 20 MG TABLET PO SCH (11:49)
[2022-07-13] MEDS: SODIUM CHLORIDE 1 GM TAB PO SCH ×2 (11:59→20:30)
[2022-07-13 12:10] LABS: Uric Acid 1.6 mg/dL (2.6-6.0)
[2022-07-13 12:45] LABS: Specific Gravity 1.015 (1.005-1.030); Urine Bilirubin Negative (Negative); Urine Blood 2+ (Negative); Urine Clarity Slightly Cloudy (Clear); Urine Color Yellow (Yellow); Urine Glucose Negative (Negative); Urine Protein 1+ (Negative); Urine Urobilinogen 0.2 mg/dL (0.2-1.0)
[2022-07-13 12:57] LABS: Urine Bacteria >50 /HPF (<20); Urine RBC <5 /HPF (None Seen)
--- NOTE | 2022-07-13 13:04 | P.PN ---
Subjective Date of Service: 07/13/22 Primary Care Provider: MIRIAM Chief Complaint: Hyponatremia No acute events overnight. She reports that she feels well this morning. She states that she has had significant polyuria over the last day. She denies any pain, shortness of breath, headaches, confusion, nausea, or vomiting. Review of Systems 10-point ROS is otherwise unremarkable General: Weakness Genitourinary: Frequency Physical Examination - Vital Signs Temperature: 97.8 F Blood Pressure: 135/64 Pulse: 91 Respirations: 18 Pulse Ox (%): 100 Assessment And Plan - Plan - Physical Exam General: Alert, In no apparent distress, Oriented x3 HEENT: Atraumatic, PERRLA, Mucous membr. moist/pink, EOMI, Sclerae nonicteric Neck: Supple, JVD not distended Respiratory: Clear to auscultation bilaterally, Normal air movement Cardiovascular: No edema, Regular rate/rhythm, Normal S1 S2, No gallops, No rubs, No murmurs Gastrointestinal: Normal bowel sounds, Hypoactive, Soft and benign, No tenderness, No rebound, No guarding Musculoskeletal: No clubbing Integumentary: No rashes Neurological: Normal speech, Cranial nerves 3-12 intact, Normal affect # Hypovolemic Hyponatremia - Consulted Nephrology and spoke with Dr. Reyes - recommendations appreciated - Evaluation thus far: - TSH = 0.561 - Cosyntropin stim test = not suggestive of adrenal insufficiency - serum Osm 238, urine Osm 347, urine Na 69 - Appreciate Nephrology recommendations regarding IV fluids +/- desmopressin - Plan to start sodium chloride tablets # Hyperglycemia in Type II Diabetes Mellitus - Hgb A1c = 7.1 % - Correction scale insulin # Hypertension # Hyperlipidemia # Gastroesophageal Reflux Disease - Continue home meds once verified Disposition: Transfer to Med/Surg status. Aki Juárez M.D. Discharge Plan: Home Plan to discharge in: 48 Hours Physician Review: Patient Assessed, Agree with Above Assessment and Plan
--- NOTE | 2022-07-13 13:20 | PN ---
Date of Progress Note: 07/13/2022 Subjective: The patient was admitted with hyponatremia. The patient was over- corrected day before yesterday. For that reason, we started the patient on DDAVP. The patient has stabilized, currently on acceptable rise. The patient received bolus of normal saline to 50 yesterday. D5 was discontinued. Physical Examination: Vital Signs: Blood pressure 135/64, pulse of 91. Chest: Clear to auscultation. Heart: S1, S2. Regular. Abdomen: Soft, nontender. Extremities: No edema. Neurological: Alert, oriented x3. No focal. No tremor. Laboratory Data: H and H 11.7/32. Sodium 124, potassium 3.9, bicarb 24, BUN 3, creatinine 0.3, uric acid 1.6, calcium 8.9, magnesium 1.9. Urine sodium 69. Current Medications: The patient on include Lovenox, Tylenol, Zofran. Assessment And Plan: 1. Hyponatremia secondary to SIADH, supported with low uric acid, elevation in urine sodium, appropriate rise. I am going to start the patient on salt tablet 1 g t.i.d. and Lasix, and we will monitor the response for the patient. 2. Hypokalemia. We will supplement. 3. Hypertension, controlled, optimal. Continue current treatment. Time spent examining the patient [id number], reviewing the data lab and radiology, placing orders, discussing with the patient, explaining risks, benefits, alternatives, discussing with the staff member including nursing discussing with the hospitalist more than 35 minutes. LAZARO Voice ID: [id number] Report ID: [id number] ALEKSANDRA
[2022-07-13] MEDS: CIPROFLOXACIN HCL 500 MG TAB PO SCH (20:30)
[2022-07-14 05:46] LABS: Absolute Lymphocytes (CBC) 1.5 K/uL (0.7-4.9); Hematocrit 36.8 % (36.0-45.0); Lymphocytes % 29.8 % (15.3-44.8); MCV 89.2 fL (80-100); MPV 6.1 fL (7.6-11.3); RBC Red Blood Cell Count 4.12 M/uL (3.86-4.86)
[2022-07-14 05:48] LABS: Potassium 3.9 mmol/L (3.5-5.1)
[2022-07-14] MEDS: INSULIN -REGULAR HUMAN 50 UNIT/0.5 ML ML SQ SCH ×4 (07:30→20:36)
[2022-07-14] MEDS: SODIUM CHLORIDE 1 GM TAB PO SCH ×3 (08:23→20:36)
[2022-07-14] MEDS: ENOXAPARIN 40 MG/0.4 ML SQ SCH (08:23)
[2022-07-14] MEDS: FUROSEMIDE 20 MG TABLET PO SCH (08:34)
[2022-07-14] MEDS: CIPROFLOXACIN HCL 500 MG TAB PO SCH (09:00)
--- NOTE | 2022-07-14 10:17 | P.PN ---
Subjective Date of Service: 07/14/22 Primary Care Provider: MIRIAM Chief Complaint: Hyponatremia Subjective: Other (Reports eating well. No nausea today.) Physical Examination - Vital Signs Temperature: 98.6 F Blood Pressure: 112/54 Pulse: 106 Respirations: 19 Pulse Ox (%): 98 - Physical Exam General: In no apparent distress HEENT: Atraumatic, Normocephalic Neck: Supple, JVD not distended Respiratory: Clear to auscultation bilaterally Cardiovascular: No edema, No rubs, No murmurs Gastrointestinal: Soft and benign, No rebound, No guarding Musculoskeletal: No clubbing, No swelling Integumentary: No rashes, No warmth Neurological: Normal speech, Normal tone Lymphatics: No axilla or inguinal lymphadenopathy Urinary: Other (No bladder distention) External genitalia: Deferred Rectal: Deferred - Studies Microbiology Data (last 24 hrs): 07/11/22 01:52 Clean Catch Urine [place] Count - Final >100,000 CFU/ML. 07/11/22 01:52 Clean Catch Urine - Final Escherichia Coli Esbl Assessment And Plan - Plan # Hyponatremia 2/2 high ADH state from abd discomfort& nausea from DM gastroparesis + joint pains from RA + BLE pain from DM neuropathy + low solute intake Serum Na 116 on adm, improved to 130 BUN & serum uric acid low She is eating better Advised on adeq po solid food intake tid Cont salt tabs tid, dc when serum Na consistently > 130 F/u BNP KCl repletion prn to keep serum K at 4.0 or higher Avoid hypoMg Serum Na goal long-term > 130 to prevent imbalance/falls # HypoK KCl repletion prn as above # ESBL e coli UTI On merrem F/u repeat UCx # Htn BP at goal, not on BP meds, monitor # DM2 Mngt per primary team Physician Review: Patient Assessed, Agree with Above Assessment and Plan
[2022-07-14] MEDS: ACETAMINOPHEN 500 MG TAB PO PRN (10:50)
[2022-07-14] MEDS: Meropenem 1,000 MG in NA CHLORIDE 0.9% 100 ML IV SCH ×2 (10:51→16:44)
--- NOTE | 2022-07-14 15:56 | P.PN ---
Subjective Date of Service: 07/14/22 Primary Care Provider: MIRIAM Chief Complaint: Hyponatremia No acute events overnight. She reports that she feels well this morning, other than some slight nausea. She states that she has been eating well and has no acute concerns today. Review of Systems 10-point ROS is otherwise unremarkable Gastrointestinal: Nausea Physical Examination - Vital Signs Temperature: 98.2 F Blood Pressure: 122/65 Pulse: 114 Respirations: 14 Pulse Ox (%): 100 - Studies Microbiology Data (last 24 hrs): 07/11/22 01:52 Clean Catch Urine [place] Count - Final >100,000 CFU/ML. 07/11/22 01:52 Clean Catch Urine - Final Escherichia Coli Esbl Assessment And Plan - Plan - Physical Exam General: Alert, In no apparent distress, Oriented x3 HEENT: Atraumatic, PERRLA, Mucous membr. 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 Cheng - recommendations appreciated - He feels that her symptoms are secondary to SIADH - Plans to obtain FEUrea - Evaluation thus far: - TSH = 0.561 - Cosyntropin stim test = not suggestive of adrenal insufficiency - serum Osm 238, urine Osm 347, urine Na 69 - Appreciate Nephrology recommendations regarding IV fluids +/- desmopressin - Continue sodium chloride tablets # Hyperglycemia in Type II Diabetes Mellitus - Hgb A1c = 7.1 % - Correction scale insulin # Hypertension # Hyperlipidemia # Gastroesophageal Reflux Disease - Continue home meds once verified Disposition: If her sodium is stable (>130) throughout the day, possible discharge tomorrow Aki Juárez M.D.
[2022-07-14 16:16] LABS: Potassium 3.6 mmol/L (3.5-5.1)
[2022-07-14] MEDS ORDERED: POTASSIUM 25 MEQ EFFERV TAB PO ONE (17:00)
[2022-07-15] MEDS: Meropenem 1,000 MG in NA CHLORIDE 0.9% 100 ML IV SCH ×3 (00:09→16:59)
[2022-07-15 05:37] LABS: Potassium 3.9 mmol/L (3.5-5.1)
[2022-07-15] MEDS: INSULIN -REGULAR HUMAN 50 UNIT/0.5 ML ML SQ SCH ×4 (07:23→21:10)
[2022-07-15] MEDS: ENOXAPARIN 40 MG/0.4 ML SQ SCH (09:04)
[2022-07-15] MEDS: FUROSEMIDE 20 MG TABLET PO SCH (09:04)
[2022-07-15] MEDS: SODIUM CHLORIDE 1 GM TAB PO SCH ×3 (09:05→20:15)
--- NOTE | 2022-07-15 10:46 | P.PN ---
Subjective Date of Service: 07/15/22 Primary Care Provider: MIRIAM Chief Complaint: Hyponatremia No acute events overnight. She reports that her only symptom at this time is mild dysuria and constipation. Review of Systems 10-point ROS is otherwise unremarkable Gastrointestinal: Constipation Genitourinary: Dysuria Physical Examination - Vital Signs Temperature: 98.6 F Blood Pressure: 129/83 Pulse: 105 Respirations: 19 Pulse Ox (%): 98 - Studies Microbiology Data (last 24 hrs): 07/11/22 01:52 Clean Catch Urine Jewett Count - Final >100,000 CFU/ML. 07/11/22 01:52 Clean Catch Urine - Final Escherichia Coli Esbl Assessment And Plan - Plan - Physical Exam General: Alert, In no apparent distress, Oriented x3 HEENT: Atraumatic, PERRLA, Mucous membr. moist/pink, EOMI, Sclerae nonicteric Neck: Supple, JVD not distended Respiratory: Clear to auscultation bilaterally, Normal air movement Cardiovascular: No edema, Regular rate/rhythm, Normal S1 S2, No gallops, No rubs, No murmurs Gastrointestinal: Normal bowel sounds, Hypoactive, Soft and benign, No tenderness, No rebound, No guarding Musculoskeletal: No clubbing Integumentary: No rashes Neurological: Normal speech, Cranial nerves 3-12 intact, Normal affect # Sepsis likely secondary to ESBL Escherchia Coli Urinary Tract Infection She met SIRS criteria based on HR > 90 bpm and RR > 20 breaths/min and the suspected source is ESBL UTI. There is currently no evidence of tissue hypoperfusion/organ dysfunction to suggest severe sepsis or septic shock. She had a brief episode of hypotension overnight on 07/12/2022, but this does not appear to be related to sepsis. Per discussion with nursing staff, unclear if cuff size was correct. Also, her lack of leukocytosis, lack of fever, and improvement of blood pressures without antibotics argues against septic shock. If these hypotensive readings were true, they were more than likely secondary to lisinopril and/or hypovolemia due to inadequate PO intake. - Sepsis order set was initiated - Initial Lactate was 1.4 - Blood cultures drawn before antibiotics - Broad spectrum antibiotics started: Meropenem per Infectious Diseases - Spoke with Dr. 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 Discharge Plan: Home Plan to discharge in: 48 Hours
[2022-07-15] MEDS: DOCUSATE NA 100 MG CAP PO SCH ×2 (12:17→20:15)
[2022-07-16] MEDS: Meropenem 1,000 MG in NA CHLORIDE 0.9% 100 ML IV SCH ×2 (00:07→10:35)
[2022-07-16] MEDS: INSULIN -REGULAR HUMAN 50 UNIT/0.5 ML ML SQ SCH ×4 (07:30→20:15)
[2022-07-16 08:32] LABS: Potassium 3.9 mmol/L (3.5-5.1)
[2022-07-16] MEDS ORDERED: D5W 1,000 ML IV SCH (10:00)
[2022-07-16] MEDS ORDERED: POLYETHYL GLY 3350 17 GM/DOSE PO PRN (10:10)
[2022-07-16] MEDS: ENOXAPARIN 40 MG/0.4 ML SQ SCH (10:34)
[2022-07-16] MEDS: FUROSEMIDE 20 MG TABLET PO SCH (10:34)
[2022-07-16] MEDS: DOCUSATE NA 100 MG CAP PO SCH ×2 (10:36→20:15)
[2022-07-16] MEDS: THIAMINE 200 MG/2 ML INJ IVP SCH (10:36)
--- NOTE | 2022-07-16 13:31 | P.PN ---
Subjective Date of Service: 07/16/22 Primary Care Provider: MIRIAM Chief Complaint: Hyponatremia No acute events overnight. Her dysuria has improved significantly, but she continues to experience constipation. She has been experiencing pruritis during administration of her meropenem. Review of Systems 10-point ROS is otherwise unremarkable General: Other (pruritis) Gastrointestinal: Constipation Physical Examination - Vital Signs Temperature: 97 F Blood Pressure: 128/79 Pulse: 89 Respirations: 19 Pulse Ox (%): 100 Assessment And Plan - Plan - Physical Exam General: Alert, In no apparent distress, Oriented x3 HEENT: Atraumatic, PERRLA, Mucous membr. moist/pink, EOMI, Sclerae nonicteric Neck: Supple, JVD not distended Respiratory: Clear to auscultation bilaterally, Normal air movement Cardiovascular: No edema, Regular rate/rhythm, Normal S1 S2, No gallops, No rubs, No murmurs Gastrointestinal: Normal bowel sounds, Hypoactive, Soft and benign, No tenderness, No rebound, No guarding Musculoskeletal: No clubbing Integumentary: No rashes Neurological: Normal speech, Cranial nerves 3-12 intact, Normal affect # Sepsis likely secondary to ESBL Escherchia Coli Urinary Tract Infection # Possible Allergy to Meropenem She met SIRS criteria based on HR > 90 bpm and RR > 20 breaths/min and the suspected source is ESBL UTI. There is currently no evidence of tissue hypoperfusion/organ dysfunction to suggest severe sepsis or septic shock. She had a brief episode of hypotension overnight on 07/12/2022, but this does not appear to be related to sepsis. Per discussion with nursing staff, unclear if cuff size was correct. Also, her lack of leukocytosis, lack of fever, and improvement of blood pressures without antibotics argues against septic shock. If these hypotensive readings were true, they were more than likely secondary to lisinopril and/or hypovolemia due to inadequate PO intake. - Sepsis order set was initiated - Initial Lactate was 1.4 - Blood cultures drawn before antibiotics - Broad spectrum antibiotics started: Meropenem per Infectious Diseases - Spoke with Dr. 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 Discharge Plan: Home (with Home Health)
[2022-07-16] MEDS: ACETAMINOPHEN 500 MG TAB PO PRN (15:58)
[2022-07-16] MEDS: ONDANSETRON 4 MG/2 ML VIAL IV PRN (15:58)
[2022-07-16] MEDS ORDERED: ERTAPENEM SODIUM 1 GM VIAL IVPB SCH (17:00)
--- NOTE | 2022-07-16 22:49 | PN ---
Date of Progress Note: 07/16/2022 Chief Complaint: Hyponatremia, hypoosmolar state. Subjective: The patient presented to the hospital because of decreased p.o. intake. She was found to have severe hyponatremia and she was complaining of nausea, vomiting, and occasional headache. Today, she is feeling better. She denies chest pain or palpitations. She had mild episodes of nausea and received Zofran for treatment of nausea. She denies melena or hematemesis. Denies vomiting. Review of Systems: Denies headache. Currently she is asymptomatic. She denies headache, vision changes, or dizziness. Physical Examination: Lungs: Clear to auscultation bilaterally. Heart: S1, S2. Abdomen: Soft. Extremities: No edema. Impression And Plan: 1. Hyponatremia, hypoosmolar secondary to ADH state from abdominal discomfort associated with nausea related to diabetes, gastroparesis, and joint ache and pain from rheumatoid arthritis. The patient has diabetic neuropathy, which is the culprit for the chronic pain. The patient developed hyponatremia secondary to ADH state, elevated ADH triggered by pain, nausea, vomiting and decreased p.o. intake, which was the culprit for low solute intake. Serum sodium level on admission was 116 and has improved to 135 yesterday. Today p.o. fluid restriction is stopped and sodium level will be reevaluated. Sodium chloride tablets were stopped yesterday. The patient was treated for nausea and vomiting with Zofran. She is feeling better than. She denies headache or vision changes. Continue potassium replacement as needed. 2. Urinary tract infection. Continue Merrem for extended spectrum beta- lactamase Escherichia coli urinary tract infection. 3. Hypertension. Blood pressure is at acceptable range. Continue treatment. 4. Diabetes mellitus per Primary Team. ERROL/MODL Voice ID: [id number] Report ID: [id number] ALEKSANDRA
--- NOTE | 2022-07-16 23:19 | PN ---
Date of Progress Note: 07/15/2022 Chief Complaint: Hyponatremia hypoosmolality. Review of Systems: The patient denies nausea and vomiting. Physical Examination: Lungs: Equal chest expansion. Heart: S1, S2. Abdomen: Soft, benign. Extremities: No edema. Impression And Plan: 1.Hyponatremia. On admission sodium level was 116, gradually improved to 130 yesterday and today is 135. BUN and serum uric acid remain low. The patient is improving with p.o. intake. Plan is to ad jaime p.o. intake and adjust sodium chloride tablet. The patient received sodium chloride tablet for treatment of severe hyponatremia. Currently, sodium level has improved and plan is to stop sodium c hloride tablets and re-evaluate sodium level. Potassium replacement with potassium chloride. Potass ium level remains within normal limits. Plan is to avoid hypomagnesemia and to control hypomagnesemi a with the p.o. replacement. 2.Hypokalemia. Treatment with potassium chloride as needed. 3.Urinary tract infection, on Merrem. Follow up on urine culture. 4.Hypertension. Blood pressure controlled. 5.Diabetes mellitus. Continue treatment as per Primary Team. EB/MODL Voice ID: [id number] Report ID: [id number]
[2022-07-17 06:01] LABS: Magnesium 2.1 mg/dL (1.8-2.4); Phosphorus 3.5 mg/dL (2.5-4.9); Potassium 3.6 mmol/L (3.5-5.1)
[2022-07-17 06:26] VITALS: BMI 27.9
[2022-07-17] MEDS: INSULIN -REGULAR HUMAN 50 UNIT/0.5 ML ML SQ SCH ×4 (07:30→21:00)
--- NOTE | 2022-07-17 08:13 | EKG ---
Test Date: 2022-07-15 Test Time: 11:21:13 Swimming Teacher: NICOLE MEASUREMENT RESULTS: Intervals: Rate: 106 TN: 136 QRSD: 68 QT: 306 QTc: 406 Bullard: P: 51 TN: 136 QRS: 72 T: 18 INTERPRETIVE STATEMENTS: Sinus tachycardia Otherwise normal ECG Compared to ECG 07/11/2022 01:08:09 Sinus rhythm no longer present Electronically Signed On 07-17-22 08:06:58 CDT by David Solorzano
[2022-07-17] MEDS: ERTAPENEM NA 1 GM in NA CHLORIDE 0.9% 100 ML IVPB SCH (08:50)
[2022-07-17] MEDS: THIAMINE 200 MG/2 ML INJ IVP SCH (08:52)
[2022-07-17] MEDS: FUROSEMIDE 20 MG TABLET PO SCH (08:52)
[2022-07-17] MEDS: ENOXAPARIN 40 MG/0.4 ML SQ SCH (08:52)
[2022-07-17] MEDS: DOCUSATE NA 100 MG CAP PO SCH ×2 (08:53→21:14)
[2022-07-17] MEDS ORDERED: POTASSIUM CL SA 10 MEQ TAB PO ONE (09:00)
--- NOTE | 2022-07-17 13:05 | RAD REPORT ---
EXAM DESCRIPTION: RAD - Chest Single View - 07/16/2022 2:09 am CLINICAL HISTORY: 57 years Female, S/P PICC insertion COMPARISON: 07/11/2022 TECHNIQUE: Single portable x-ray view of the chest performed on 07/16/2022 at 2:01 AM FINDINGS: The lungs are well-expanded and are grossly clear. There is linear scarring in the right l stanley base. There is no evidence of a pneumothorax. The cardiac silhouette is normal in size and configuration. The mediastinal contours are normal. No acute osseous abnormality is identified. No acute soft tissue abnormalities are seen. Lines and tubes: There is a right upper extremity PICC line catheter which terminates in the region of the superior vena cava. Free air: None IMPRESSION: 1. The right upper extremity PICC line catheter terminates in the region of the superi or vena cava. 2. No evidence of acute intrathoracic disease. Stable scarring in the right lower lobe. Electronically signed by: Mary Kate Villanueva DO 07/16/2022 3:07 AM CDT Due to temporary technical issues with the PACS/Fluency reporting system, reports are being signed by the in house radiologists without review as a courtesy to insure prompt reporting. The interpreting radiologist is fully responsible for the content of the report.
--- NOTE | 2022-07-17 16:59 | CON ---
History Of Present Illness: The patient is a 57-year-old female. I was consulted for evaluation of urinary tract infection secondary to ESBL E coli. The patient is currently being treated with Invanz . She is being transferred from ICU to regular floor. The patient denies any headache, nausea, vomi ting, chest pain, abdominal pain, constipation, or diarrhea. Feels much better since she has been on IV antibiotic and has no reaction to Invanz as she has allergies to penicillin. Past Medical History: The patient has significant past medical history of hypertension, diabetes donna litus, hyperlipidemia, hernia repair. Social History: Nonsmoker, nondrinker. Family History: Noncontributory except liver cancer. Review of Systems: A 10-point review was performed. Medications: Invanz. See MAR for other medications. The patient did receive meropenem before. Allergies: PENICILLIN. Review of Systems: A 10-point review was performed. Physical Examination: General: This is a 57-year-old female, lying in bed, not in any acute cardiopulmonary distress. Vital Signs: Temperature 97, pulse 110, respirations 20, blood pressure 121/87. HEENT: Unremarkable. Neck: Supple. Lungs: Basal crackles. Heart: S1, S2. Regular. Abdomen: Soft, nontender. Bowel sounds present. Extremity: No edema. Laboratory Data: Shows WBC 5, hemoglobin 12, platelets are 367. Chemistry shows sodium 133, potassi um 3.6, chloride 98, bicarb 30, BUN 5, creatinine 0.3, glucose 186. Urine shows WBC more than 50. U rine cultures growing E coli ESBL on 07/11 and 07/15. Blood cultures on 07/15 are negative. Assessment And Plan: Urinary tract infection secondary to Escherichia coli ESBL. Consider treating for 7 days of total of IV antibiotic, consider getting evaluation by Urology as an outpatient. The p atient is doing otherwise. The patient has shown significant improvement since admission. Continue supportive care and IV antibiotic. We will follow the patient closely. Thank you Dr. Juárez and Dr. Trejo for consult. NF/MODL Voice ID: [id number] Report ID: [id number]
--- NOTE | 2022-07-18 01:27 | PN ---
Date of Progress Note: 07/17/2022 Chief Complaint: Hyponatremia, hypoosmolality. The patient denies nausea or vomiting. She is doing better. Hyponatremia has improved gradually. O n admission, sodium level was 116. The patient was taken temporarily off fluid restriction yesterday and she received D5W to slow down correction of hyponatremia. Today, sodium level is 133. Hyponatr emia overall improved. BUN and serum uric acid remained low. The patient is improving with p.o. int nisha. Plan is to advance protein intake. The patient was taken off sodium chloride tablet due to the fact that sodium level has already improved. Potassium remains within normal limits. Review of Systems: Denies fever or chills. Physical Examination: Lungs: Clear to auscultation bilaterally. Heart: S1 and S2. Abdomen: Soft, benign. Extremities: No edema. Impression And Plan: 1.Hyponatremia, overall improved. The patient will continue p.o. fluid restriction. Re-evaluate la b work in the morning. 2.Hypokalemia. Treatment with potassium chloride as needed. 3.Urinary tract infection, on Merrem. Continue treatment. 4.Hypertension. Blood pressure control. 5.Diabetes mellitus. Continue treatment per primary team. ERROL/LASHAE Voice ID: [id number] Report ID: [id number]
[2022-07-18 05:59] LABS: Magnesium 2.3 mg/dL (1.8-2.4); Phosphorus 3.5 mg/dL (2.5-4.9); Potassium 3.8 mmol/L (3.5-5.1)
[2022-07-18] MEDS: THIAMINE 200 MG/2 ML INJ IVP SCH (09:00)
[2022-07-18] MEDS ORDERED: POTASSIUM CL SA 10 MEQ TAB PO ONE (09:00)
[2022-07-18] MEDS: ENOXAPARIN 40 MG/0.4 ML SQ SCH (09:32)
[2022-07-18] MEDS: DOCUSATE NA 100 MG CAP PO SCH ×2 (09:32→21:00)
[2022-07-18] MEDS: FUROSEMIDE 20 MG TABLET PO SCH (09:32)
[2022-07-18] MEDS: ERTAPENEM NA 1 GM in NA CHLORIDE 0.9% 100 ML IVPB SCH (09:33)
[2022-07-18] MEDS: INSULIN -REGULAR HUMAN 50 UNIT/0.5 ML ML SQ SCH ×4 (09:33→21:08)
[2022-07-18] MEDS: THIAMINE HCL 100 MG TABLET PO SCH (09:38)
--- NOTE | 2022-07-18 16:39 | PN ---
Subjective: The patient getting shower. Denies any new complaints. No problems with IV antibiotic. Objective: Vital Signs: Reviewed. Lungs: Basal crackles. Heart: S1, S2. Regular. Abdomen: Soft, nontender. Bowel sounds present. Extremity: No edema. Assessment And Plan: Urinary tract infection secondary to Escherichia coli ESBL. Continue antibioti c and supportive care, total course of 7 days. Follow up with Neurology. No other recommendation at this time. NF/MODL Voice ID: [id number] Report ID: [id number]
--- NOTE | 2022-07-18 16:56 | PN ---
Date of Progress Note: 07/18/2022 Subjective: The patient was admitted with hyponatremia secondary to SIADH. The patient was started on salt tablet. Currently, sodium has been normalized. The patient had developed E coli, was started on antibiotic. Physical Examination: Vital Signs: Blood pressure 123/56, pulse of 97, afebrile. Chest: Clear to auscultation. Heart: S1, S2. Regular. Abdomen: Soft, nontender. Extremities: No edema. Laboratory Data: Sodium 135, potassium 3.8, bicarb 30, BUN 9, creatinine 0.3, calcium 9.1, phosphorus 3.5, magnesium 2.3. Current Medications: The patient on include ertapenem, Lovenox, Lasix 20, KCl. Assessment And Plan: 1. Hyponatremia secondary to SIADH, supported with urine electrolyte. The patient off salt tablet, had been continued on only Lasix, and sodium continued to be well corrected. For the last 24 hours, sodium trending down. I am going to continue to hold the salt tablet for the time being. Continue Lasix. We will follow up the patient as outpatient. 2. Hypokalemia. Continue supplement. 3. SIADH as above. 4. Diabetes as by primary. 5. Urinary tract infection ESBL. The patient was started on ertapenem. We will follow up with ID. Time spent examining the patient [id number], reviewing the data lab and radiology, placing orders, discussing with the patient, explaining risks, benefits, alternatives, discussing with the staff member including nursing discussing with the hospitalist more than 35 minutes. LAZARO Voice ID: [id number] Report ID: [id number] ALEKSANDRA
--- NOTE | 2022-07-18 23:43 | P.PN ---
Subjective Date of Service: 07/17/22 Subjective: No new changes, No C/O voiced, Improving Review of Systems 10-point ROS is otherwise unremarkable Physical Examination - Vital Signs Temperature: 97.5 F Blood Pressure: 106/57 Pulse: 100 Respirations: 18 Pulse Ox (%): 98 - Physical Exam General: Alert, In no apparent distress HEENT: Atraumatic, PERRLA, EOMI Neck: Supple, JVD not distended Respiratory: Clear to auscultation bilaterally, Normal air movement Cardiovascular: Regular rate/rhythm, Normal S1 S2 Gastrointestinal: Normal bowel sounds, No tenderness Musculoskeletal: No tenderness Integumentary: No rashes Neurological: Normal speech, Normal tone, Normal affect Lymphatics: No axilla or inguinal lymphadenopathy - Studies Medications List Reviewed: Yes Assessment & Plan - Problems (Diagnosis) (1) Hyponatremia Current Visit: Yes Status: Acute (2) ESBL (extended spectrum beta-lactamase) producing bacteria infection Current Visit: Yes Status: Acute - Plan plan: 1. continue with monitoring sodium level 2. Continue with antibiotics 3. Monitor labs 4. Arrange for outpatient antibiotics 5. Gi DVT prophylaxis Discharge Plan: Home Plan to discharge in: 24 Hours - Advance Directives Does patient have a Living Will: No Does patient have a Durable POA for Healthcare: No - Code Status/Comfort Care Code Status Assessed: Yes Code Status: Full Code Physician Review: Patient Assessed, Agree with Above Assessment and Plan Critical Care: No Time Spent Managing PTS Care (In Minutes): 35
--- NOTE | 2022-07-18 23:45 | P.PN ---
Date of Service: 07/18/22 Subjective patient was supposed to be discharged today. I am not really sure why she is still in the hospital. Discuss with nursing staff and Case Management in the morning. She is stable for discharge. Review of Systems 10-point ROS is otherwise unremarkable Physical Examination - Vital Signs reviewed - Physical Exam General: Alert, In no apparent distress Respiratory: Clear to auscultation bilaterally, Normal air movement Cardiovascular: Regular rate/rhythm, Normal S1 S2 Gastrointestinal: Normal bowel sounds, No tenderness Neurological: Normal speech, Normal tone, Normal affect Assessment & Plan - Problems (Diagnosis) (1) Hyponatremia Current Visit: Yes Status: Acute (2) ESBL (extended spectrum beta-lactamase) producing bacteria infection Current Visit: Yes Status: Acute - Plan Continue with POC as mentioned below 1. Continue with monitoring sodium level 2. Continue with antibiotics 3. Monitor labs 4. Arrange for outpatient antibiotics 5. GI DVT prophylaxis Discharge Plan: Home Plan to discharge in: 24 Hours - Advance Directives Does patient have a Living Will: No Does patient have a Durable POA for Healthcare: No - Code Status/Comfort Care Code Status Assessed: Yes Code Status: Full Code Physician Review: Patient Assessed, Agree with Above Assessment and Plan Critical Care: No Time Spent Managing PTS Care (In Minutes): 35
[2022-07-19 04:03] LABS: Magnesium 2.2 mg/dL (1.8-2.4); Phosphorus 3.9 mg/dL (2.5-4.9); Potassium 3.8 mmol/L (3.5-5.1)
[2022-07-19] MEDS ORDERED: POTASSIUM CL SA 10 MEQ TAB PO ONE (04:53)
[2022-07-19] MEDS: INSULIN -REGULAR HUMAN 50 UNIT/0.5 ML ML SQ SCH ×3 (07:30→17:13)
[2022-07-19] MEDS: ERTAPENEM NA 1 GM in NA CHLORIDE 0.9% 100 ML IVPB SCH (08:49)
[2022-07-19] MEDS: DOCUSATE NA 100 MG CAP PO SCH (08:50)
[2022-07-19] MEDS: ENOXAPARIN 40 MG/0.4 ML SQ SCH (08:50)
[2022-07-19] MEDS: FUROSEMIDE 20 MG TABLET PO SCH (08:50)
[2022-07-19] MEDS: THIAMINE HCL 100 MG TABLET PO SCH (08:51)
[2022-07-19] MEDS ORDERED: POTASSIUM 25 MEQ EFFERV TAB PO ONE (09:43)
[2022-07-19 10:52] VITALS: O2SAT 98
--- NOTE | 2022-07-19 11:40 | PN ---
Date of Progress Note: 07/19/2022 Subjective: The patient was admitted with hyponatremia secondary to COVID. The patient was started on salt tablet and Lasix, recovered. Salt tablet was discontinued for the last 48 hours. Continued on the Lasix, doing well. Physical Examination: Vital Signs: Blood pressure 122/57, pulse of 80. Chest: Clear to auscultation. Heart: S1, S2. Regular. Abdomen: Soft, nontender. Extremities: No edema. Laboratory Data: WBC 5, H and H 13/36.8. Sodium 136, potassium 3.8, bicarb 28, BUN 11, creatinine 0 .3, calcium 9.1, phosphorus 3.9, magnesium 2.2. Current Medications: The patient on include Lovenox, ertapenem, Lasix 20 mg daily, docusate, insulin . Assessment And Plan: 1.Hyponatremia secondary to SIADH, recovered, resolved. Currently sodium normalized. Off salt tabl et for the last 24 hours. I am going to continue to monitor the patient. Given the stabilization, I am going to hold on the Lasix for now and we will monitor. 2.Hypertension, controlled, optimal. 3.Hypokalemia. We will supplement. 4.Urinary tract infection secondary to ESBL Escherichia coli, on ertapenem, status post PICC line. We will follow up with the primary. LAZARO Voice ID: [id number] Report ID: [id number]
--- NOTE | 2022-07-19 14:14 | P.DS ---
Discharge Date: 07/19/22 Primary Care Provider: MIRIAM Disposition: ROUTINE DISCHARGE Discharge Condition: GOOD Reason for Admission: Hyponatremia - Problems (1) Hyponatremia Current Visit: Yes Status: Acute (2) ESBL (extended spectrum beta-lactamase) producing bacteria infection Current Visit: Yes Status: Acute Brief History of Present Illness: 57-year-old female with history of diabetes type [id number], hypertension, hyperlipidemia and GERD presented to the emergency department for nausea, headache, paresthesias. She reports that she been to an outside hospital/office a few times in the past month for UTI and had been told that her sodium was relatively low. She was evaluated here in the emergency department her labs were significant for sodium level of 116 chloride of 81 creatinine 0.47 serum osmolality 238 uric acid 1.8 magnesium 1.6 urine osmolality 347 urine random sodium 69 urine creatinine 50. Results from [place] reviewed patient sodium level was as low as 117 earlier this month appears to be acute on chronic hyponatremia. Patient is given 500 cc NS bolus in the emergency department will be admitted for further evaluation and management. Vital Signs/Physical Exam: Temp Pulse Resp BP Pulse Ox 97.6 F 83 18 124/80 96 07/19/22 12:00 07/19/22 12:00 07/19/22 12:00 07/19/22 12:00 07/19/22 12:00 Laboratory Data at Discharge: WBC 5.00 K/uL (4.3-10.9) 07/14/22 04:55 Hgb 13.0 g/dL (12.0-15.0) 07/14/22 04:55 Hct 36.8 % (36.0-45.0) 07/14/22 04:55 Plt Count 367 K/uL (152-406) 07/14/22 04:55 PT 11.0 SECONDS (9.5-12.5) 07/11/22 01:39 INR 1.00 07/11/22 01:39 APTT 34.6 SECONDS (24.3-36.9) 07/11/22 01:39 Sodium 136 mmol/L (136-145) 07/19/22 03:08 Potassium 3.8 mmol/L (3.5-5.1) 07/19/22 03:08 BUN 11 mg/dL (7-18) 07/19/22 03:08 Creatinine 0.35 mg/dL (0.55-1.3) L 07/19/22 03:08 Glucose 165 mg/dL (74-106) H 07/19/22 03:08 Uric Acid 1.6 mg/dL (2.6-6.0) L 07/13/22 04:32 Phosphorus 3.9 mg/dL (2.5-4.9) 07/19/22 03:08 Magnesium 2.2 mg/dL (1.8-2.4) 07/19/22 03:08 Total Bilirubin 1.0 mg/dL (0.2-1.0) 07/11/22 00:19 AST 44 U/L (15-37) H 07/11/22 00:19 ALT 79 U/L (12-78) H 07/11/22 00:19 Alkaline Phosphatase 104 U/L (45-117) 07/11/22 00:19 Lipase 158 U/L (73-393) 07/11/22 00:19 Home Medications: Atorvastatin Calcium [Lipitor] 40 mg PO BEDTIME 07/11/22 Famotidine [Pepcid*] 20 mg PO BID 07/11/22 Folic Acid/Vit B Complex and C [Folbee Plus Tablet] 5 mg PO [id number] 07/11/22 Glimepiride [Amaryl] 4 mg PO BID 07/11/22 Metformin ER [Glucophage ER*] 1,000 mg PO BID 07/11/22 Pantoprazole [Protonix Tab*] 40 mg PO DAILY 07/11/22 Semaglutide [Rybelsus] 14 mg PO DAILY 07/11/22 Sucralfate [Carafate*] 1 gm PO ACHS 07/11/22 lisinopriL [Lisinopril] 20 mg PO DAILY 07/11/22 Ertapenem Sodium [Invanz] 1 gm IV DAILY #10 ml 07/17/22 Docusate [Colace Cap] 100 mg PO DAILY #30 cap 07/18/22 Furosemide [Lasix*] 20 mg PO DAILY #30 tab 07/18/22 Ondansetron [Zofran] 4 mg PO Q6H PRN #30 tab 07/18/22 Potassium Chloride [K-Dur] 10 meq PO DAILY #30 07/18/22 Sodium Chloride Tab [Sodium Chloride*] 1 gm PO BID #60 tab 07/18/22 New Medications: Docusate [Colace Cap] 100 mg PO DAILY #30 cap Ertapenem Sodium [Invanz] 1 gm IV DAILY #10 ml Potassium Chloride [K-Dur] 10 meq PO DAILY #30 Furosemide [Lasix*] 20 mg PO DAILY #30 tab Sodium Chloride Tab [Sodium Chloride*] 1 gm PO BID #60 tab Ondansetron [Zofran] 4 mg PO Q6H PRN #30 tab PRN Reason: Nausea / Vomiting Diet: Regular Activity: Ad mateo Followup: Ronald Cheng [ACTIVE - CAN ADMIT] - (Please schedule an appointment with Nephrology (Dr. Cheng) in 5-7 days) ENOCH SMITH [OUTSIDE PHYSICIAN] - (follow up in 3-5 days and after completion of IV antibiotics)
[2022-07-19 17:04] VITALS: BP 136/60; TEMP 97.2
== END 2022-07-19 18:36 | disposition home or self-care (01) | DRG 643 ==
LOC: ER 23:16 → ERHOLD 07-11 03:27 → 3RD-ICU 07-11 17:23 → 4TH 07-17 13:40
PROVIDERS: ADMIT Internal Medicine; ATTEND Hospitalist
PROC: 02HV33Z Insertion of Infusion Device into Superior Vena Cava, Percutaneous Approach (ICD-10-PCS; principal; 2022-07-16)
DX: E22.2 Syndrome of inappropriate secretion of antidiuretic hormone (principal); A41.51 Sepsis due to Escherichia coli [E. coli]; N39.0 Urinary tract infection, site not specified; Z16.12 Extended spectrum beta lactamase (ESBL) resistance; E11.65 Type 2 diabetes mellitus with hyperglycemia; E11.43 Type 2 diabetes mellitus with diabetic autonomic (poly)neuropathy; K31.84 Gastroparesis; K21.9 Gastro-esophageal reflux disease without esophagitis; K59.00 Constipation, unspecified; G47.00 Insomnia, unspecified; E87.6 Hypokalemia; M06.9 Rheumatoid arthritis, unspecified; I10 Essential (primary) hypertension; E78.5 Hyperlipidemia, unspecified; Z88.0 Allergy status to penicillin; Z86.16 Personal history of COVID-19; Z88.1 Allergy status to other antibiotic agents; Z79.84 Long term (current) use of oral hypoglycemic drugs; Z79.899 Other long term (current) drug therapy; Z20.822 Contact with and (suspected) exposure to COVID-19
CPT/HCPCS: 36415; 36569; 70450; 71045; 80048; 80076; 81001; 81003; 81015; 82024; 82533; 82570; 82947; 83036; 83605; 83690; 83735; 83880; 83930; 83935; 84100; 84132; 84300; 84439; 84443; 84550; 85025; 85610; 85730; 87040; 87077; 87086; 87088; 87186; 87811; 90732; 93005; 96365; 96375; 99285; J0834; J1335; J1650; J1815; J2185; J2405; J2597; J3411; J3475; J3480; J7030; J7040; J7050; J7060